=== PATIENT | female | born 1970 | race Caucasian/White ===

== ENCOUNTER 2017-04-05 11:54 | Inpatient (IN) | payer MEDICAID, OTHER ==
[~2017-04-05] VITALS: Ht 160 cm; Wt 61.0 kg
[2017-04-05 12:51] LABS: Basophils # (auto) 0 uL; Basophils % (auto) 0.3 % (0.0-2.0); Eosinophils # (auto) 0 uL; Eosinophils % (auto) 0.2 % (0.0-7.0); Hematocrit 36.6 % (41.0-53.0); Hemoglobin 12.2 g/dL (13.5-17.5); Lymphocytes # (auto) 0.6 uL; Lymphocytes % (auto) 5.1 % (10.0-50.0); Mean Corpuscular Hemoglobin 30.5 pg (28.0-32.0); Mean Corpuscular Hgb Conc. 33.3 g/dL (32.0-36.0); Mean Corpuscular Volume 91.8 fL (80.0-100.0); Monocytes # (auto) 0.8 uL; Monocytes % (auto) 7.2 % (0.0-12.0); Neutrophils # (auto) 9.6 uL; Neutrophils % (auto) 87.2 % (37.0-80.0); Platelet Count (auto) 400 10^3/uL (140-450); Red Blood Cells 3.99 10^6/uL (4.5-5.90); Red Cell Distribution Width 15.3 % (11.8-14.3)
[2017-04-05 13:07] LABS: Alanine Aminotransferase 26 U/L (16-61); Albumin 3.1 g/dL (3.4-5.0); Anion Gap 9 (5-15); Aspartate Aminotransferase 14 U/L (15-37); BUN/Creatinine Ratio 17.2; Blood Urea Nitrogen 11 mg/dL (7-18); Carbon Dioxide 28 mmol/L (21-32); Chloride 100 mmol/L (98-107); GFR African American 172 mL/min; GFR Non-African American 142 mL/min; Glucose 131 mg/dL (74-106); Sodium 137 mmol/L (136-145)
[2017-04-05 13:11] LABS: Alkaline Phosphatase 118 U/L (45-117); Bilirubin, Total 1.3 mg/dL (0.2-1.0)
[2017-04-05 13:13] LABS: Potassium 2.9 mmol/L (3.5-5.1)
[2017-04-05] MEDS ORDERED: SODIUM CHLORIDE 0.9% 1,000 ML IVB ONE (13:30)
[2017-04-05 14:02] LABS: Partial Thromboplastin Time 27.1 sec (22.64-33.71); Prothrombin Time 10.9 sec (9.37-12.3)
[2017-04-05 14:08] LABS: Amylase 23 U/L (25-115); Lipase 59 U/L (73-393)
[2017-04-05] MEDS ORDERED: ONDANSETRON HCL 4 MG/2 ML VIAL IV ONE ×2 (16:45→20:00)
[2017-04-05] MEDS ORDERED: KETOROLAC TROMETH 30 MG/ML 1ML VIAL IV ONE (16:45)
[2017-04-05] MEDS ORDERED: POTASSIUM CHL 20 Meq TABLET PO ONE ×2 (16:45)
[2017-04-05 18:22] LABS: Urine Bacteria NONE SEEN /hpf (None Seen); Urine Blood 1+ /uL (Negative); Urine Mucus FEW (None Seen); Urine Specific Gravity 1.023 (1.001-1.035); Urine WBC 10 /hpf (0 - 3)
[2017-04-05] MEDS ORDERED: MORPHINE SULFATE 4 MG/ML SYR/VIAL IV ONE (20:00)
[2017-04-05] MEDS ORDERED: cefTRIAXone 1GM/10ml IVPUSH 10 ML IV ONE (20:00)
[2017-04-05] MEDS: HYDROcodone-ACET 5/325MG TAB PO PRN (23:50)
[2017-04-06] VITALS (7 sets, daily range): BP systolic 105–153; BP diastolic 55–83
[2017-04-06] MEDS ORDERED: VANCOMYCIN PER PHARMACY 0 MG IV SCH
[2017-04-06] MEDS ORDERED: VANCOMYCIN 1GM/250ML 250 ML IV ONE (01:00)
[2017-04-06 01:49] LABS: Alcohol, Urine < 3.0 mg/dL (0-5); Amphetamine Screen, Urine NEGATIVE (NEGATIVE); Barbiturate Scree,Urine NEGATIVE (NEGATIVE); Benzodiazephine Screen, Urine NEGATIVE (NEGATIVE); Cannabinoid Screen, Urine NEGATIVE (NEGATIVE); Cocaine Screen, Urine NEGATIVE (NEGATIVE); Opiate Scree,Urine POSITIVE (NEGATIVE); Phencyclidine Screen, Urine NEGATIVE (NEGATIVE)
[2017-04-06] MEDS: MORPHINE SULFATE 4 MG/ML SYR/VIAL IV PRN ×4 (03:32→20:02)
[2017-04-06] MEDS: hydrOXYzine HCL 10 MG TAB PO PRN (04:11)
[2017-04-06] MEDS ORDERED: SERT25TA84 PO (04:51)
[2017-04-06] MEDS ORDERED: HYDR-3682 PO (04:51)
[2017-04-06] MEDS: cefTRIAXone 1GM/10ml IVPUSH 10 ML IV SCH (08:38)
[2017-04-06] MEDS: ONDANSETRON HCL 4 MG/2 ML VIAL IV PRN ×3 (08:47→20:02)
[2017-04-06 09:43] LABS: Basophils # (auto) 0 uL; Basophils % (auto) 0.2 % (0.0-2.0); Eosinophils # (auto) 0.1 uL; Eosinophils % (auto) 0.7 % (0.0-7.0); Hematocrit 29.4 % (36.0-46.0); Hemoglobin 9.8 g/dL (12.2-16.2); Lymphocytes # (auto) 0.8 uL; Lymphocytes % (auto) 7.8 % (10.0-50.0); Mean Corpuscular Hemoglobin 30.4 pg (28.0-32.0); Mean Corpuscular Hgb Conc. 33.4 g/dL (32.0-36.0); Mean Corpuscular Volume 90.9 fL (80.0-100.0); Monocytes % (auto) 10.5 % (0.0-12.0); Neutrophils # (auto) 7.9 uL; Neutrophils % (auto) 80.8 % (37.0-80.0); Platelet Count (auto) 304 10^3/uL (140-450); Red Blood Cells 3.23 10^6/uL (4.0-5.20); Red Cell Distribution Width 14.9 % (11.8-14.3); White Blood Cell 9.7 10^3/uL (4.4-10.8)
[2017-04-06 10:02] LABS: Potassium 3.6 mmol/L (3.5-5.1)
[2017-04-06] MEDS: SERTRALINE HCL 50 MG TAB PO SCH (10:13)
[2017-04-06] MEDS: HYDROcodone-ACET 5/325MG TAB PO PRN (10:19)
[2017-04-06] MEDS: metroNIDAZOLE 500MG/100ML 100 ML IV SCH ×2 (14:35→22:24)
[2017-04-06] MEDS: ACETAMINOPHEN 500 MG TAB PO PRN (21:36)
[2017-04-07 05:11] VITALS: BP 116/69
[2017-04-07] MEDS: metroNIDAZOLE 500MG/100ML 100 ML IV SCH ×3 (05:39→22:02)
[2017-04-07] MEDS: ONDANSETRON HCL 4 MG/2 ML VIAL IV PRN ×4 (05:40→22:00)
[2017-04-07] MEDS: MORPHINE SULFATE 4 MG/ML SYR/VIAL IV PRN ×3 (05:40→15:43)
[2017-04-07 06:44] LABS: Basophils # (auto) 0.1 uL; Basophils % (auto) 0.5 % (0.0-2.0); Eosinophils # (auto) 0 uL; Eosinophils % (auto) 0.1 % (0.0-7.0); Hematocrit 32.8 % (36.0-46.0); Lymphocytes # (auto) 0.8 uL; Mean Corpuscular Hemoglobin 30.1 pg (28.0-32.0); Mean Corpuscular Hgb Conc. 33.5 g/dL (32.0-36.0); Mean Corpuscular Volume 89.8 fL (80.0-100.0); Monocytes # (auto) 0.9 uL; Neutrophils # (auto) 8.2 uL; Neutrophils % (auto) 82.4 % (37.0-80.0); Platelet Count (auto) 335 10^3/uL (140-450); Red Blood Cells 3.65 10^6/uL (4.0-5.20); Red Cell Distribution Width 15.1 % (11.8-14.3)
[2017-04-07 07:05] LABS: Albumin 2.4 g/dL (3.4-5.0); Calcium 8.4 mg/dL (8.5-10.1); Potassium 3.5 mmol/L (3.5-5.1)
[2017-04-07 07:07] LABS: Bilirubin, Total 0.4 mg/dL (0.2-1.0); Total Protein 6.5 g/dL (6.4-8.2)
[2017-04-07 09:00] VITALS: BP 106/63
[2017-04-07] MEDS: cefTRIAXone 1GM/10ml IVPUSH 10 ML IV SCH (10:06)
[2017-04-07] MEDS: SERTRALINE HCL 50 MG TAB PO SCH (10:07)
[2017-04-07 13:00] VITALS: BP 110/65
[2017-04-07 17:00] VITALS: BP 109/61
[2017-04-07 22:00] VITALS: BP 100/70
[2017-04-07] MEDS: HYDROcodone-ACET 5/325MG TAB PO PRN (22:01)
[2017-04-08 05:30] VITALS: BP 107/62
[2017-04-08] MEDS: HYDROcodone-ACET 5/325MG TAB PO PRN ×2 (05:58→17:56)
[2017-04-08] MEDS: metroNIDAZOLE 500MG/100ML 100 ML IV SCH ×3 (05:58→21:50)
[2017-04-08] MEDS: ONDANSETRON HCL 4 MG/2 ML VIAL IV PRN ×3 (06:07→21:51)
[2017-04-08 07:15] LABS: Basophils # (auto) 0 uL; Basophils % (auto) 0.2 % (0.0-2.0); Eosinophils # (auto) 0 uL; Eosinophils % (auto) 0.3 % (0.0-7.0); Hematocrit 30.5 % (36.0-46.0); Hemoglobin 10.3 g/dL (12.2-16.2); Lymphocytes # (auto) 0.6 uL; Lymphocytes % (auto) 6.1 % (10.0-50.0); Mean Corpuscular Hemoglobin 30.5 pg (28.0-32.0); Mean Corpuscular Hgb Conc. 33.8 g/dL (32.0-36.0); Mean Corpuscular Volume 90.1 fL (80.0-100.0); Monocytes # (auto) 0.8 uL; Monocytes % (auto) 7.6 % (0.0-12.0); Neutrophils # (auto) 8.9 uL; Neutrophils % (auto) 85.8 % (37.0-80.0); Platelet Count (auto) 355 10^3/uL (140-450); Red Blood Cells 3.38 10^6/uL (4.0-5.20); Red Cell Distribution Width 14.8 % (11.8-14.3); White Blood Cell 10.4 10^3/uL (4.4-10.8)
[2017-04-08 07:31] LABS: BUN/Creatinine Ratio 14.3; Calcium 8.1 mg/dL (8.5-10.1); Potassium 3.2 mmol/L (3.5-5.1)
[2017-04-08 08:27] VITALS: BP 93/50
[2017-04-08] MEDS ORDERED: POTASSIUM CHLORIDE 40 MEQ, LIDOCAINE 1% (LOCAL ANESTH.) 4 ML in SODIUM CHL 0.9% 100 ML IV ONE (09:45)
[2017-04-08] MEDS: cefTRIAXone 1GM/10ml IVPUSH 10 ML IV SCH (09:50)
[2017-04-08] MEDS: MORPHINE SULFATE 4 MG/ML SYR/VIAL IV PRN ×3 (09:51→20:20)
[2017-04-08] MEDS: SERTRALINE HCL 50 MG TAB PO SCH (09:51)
[2017-04-08 13:00] VITALS: BP 97/53
[2017-04-08 17:00] VITALS: BP 111/68
[2017-04-08] MEDS: ACETAMINOPHEN 500 MG TAB PO PRN (20:51)
[2017-04-08 21:06] LABS: INR 1.3 (0.9-1.15); Partial Thromboplastin Time 29.1 sec (22.64-33.71); Prothrombin Time 14.2 sec (9.37-12.3)
[2017-04-08 22:00] VITALS: BP 96/54
[2017-04-09 05:43] VITALS: BP 100/51
[2017-04-09 05:56] LABS: Basophils # (auto) 0 uL; Basophils % (auto) 0.2 % (0.0-2.0); Eosinophils # (auto) 0.1 uL; Eosinophils % (auto) 0.5 % (0.0-7.0); Hematocrit 29.1 % (36.0-46.0); Hemoglobin 9.9 g/dL (12.2-16.2); Lymphocytes # (auto) 0.9 uL; Lymphocytes % (auto) 8.5 % (10.0-50.0); Mean Corpuscular Hemoglobin 30.8 pg (28.0-32.0); Mean Corpuscular Hgb Conc. 34.1 g/dL (32.0-36.0); Mean Corpuscular Volume 90.2 fL (80.0-100.0); Monocytes # (auto) 0.8 uL; Monocytes % (auto) 7.6 % (0.0-12.0); Neutrophils # (auto) 9.2 uL; Neutrophils % (auto) 83.2 % (37.0-80.0); Platelet Count (auto) 350 10^3/uL (140-450); Red Blood Cells 3.22 10^6/uL (4.0-5.20); Red Cell Distribution Width 14.9 % (11.8-14.3)
[2017-04-09] MEDS: HYDROcodone-ACET 5/325MG TAB PO PRN (06:00)
[2017-04-09] MEDS: metroNIDAZOLE 500MG/100ML 100 ML IV SCH ×3 (06:00→21:20)
[2017-04-09 06:19] LABS: Calcium 7.8 mg/dL (8.5-10.1); Potassium 3.6 mmol/L (3.5-5.1)
[2017-04-09 08:00] VITALS: BP 90/51
[2017-04-09 09:00] VITALS: BP 92/51
[2017-04-09] MEDS: cefTRIAXone 1GM/10ml IVPUSH 10 ML IV SCH (10:00)
[2017-04-09] MEDS: MORPHINE SULFATE 4 MG/ML SYR/VIAL IV PRN ×3 (10:47→20:28)
[2017-04-09] MEDS ORDERED: BUPIVACAINE W/ EPINEPH 0.25% INJ 50ML MDV ONE (10:48)
[2017-04-09] MEDS: SERTRALINE HCL 50 MG TAB PO SCH (10:50)
[2017-04-09] MEDS: ONDANSETRON HCL 4 MG/2 ML VIAL IV PRN ×3 (10:55→20:27)
[2017-04-09] MEDS ORDERED: LIDOCAINE 1% HCL (LOCAL ANESTH.) INJ 20ML MDV ONE (11:29)
[2017-04-09] MEDS ORDERED: SUCCINYLCHOLINE CHLORIDE 20 MG/ML 10ML VIAL IV ONE (11:30)
[2017-04-09] MEDS ORDERED: MIDAZOLAM HCL 1MG/1ML-2 ML VIAL ONE (11:32)
[2017-04-09] MEDS ORDERED: PROPOFOL 10 MG/ML 20 ML IV ONE (11:32)
[2017-04-09] MEDS ORDERED: ROCURONIUM 10MG/ML 10ML VIAL IV ONE (11:32)
[2017-04-09] MEDS ORDERED: MORPHINE SULFATE 4 MG/ML SYR/VIAL IV PRN (12:00)
[2017-04-09] MEDS ORDERED: ONDANSETRON HCL 4 MG/2 ML VIAL IV ONE (12:00)
[2017-04-09] MEDS ORDERED: NALOXONE HCL 0.4 MG/ML VIAL IV PRN (12:00)
[2017-04-09] MEDS ORDERED: hydrALAZINE HCL 20 MG/ML VL IV PRN (12:00)
[2017-04-09] MEDS ORDERED: fentaNYL CITRATE 100 MCG/2 ML VL ONE (12:09)
[2017-04-09] MEDS ORDERED: GLYCOPYRROLATE 0.2 MG/ML 1ML VIAL ONE ×2 (13:30→13:32)
[2017-04-09] MEDS ORDERED: NEOSTIGMINE 1 MG/ML INJ (10mg/10ML VIAL) ONE (13:30)
[2017-04-09] MEDS ORDERED: KETOROLAC TROMETH 30 MG/ML 1ML VIAL ONE (13:44)
[2017-04-09] MEDS ORDERED: ACETAMINOPHEN 500 MG TAB PO PRN (14:00)
[2017-04-09] MEDS ORDERED: MORPHINE SULF INJ 2 MG/ML SYRINGE 1ML IV PRN (14:00)
[2017-04-09] MEDS ORDERED: MEPERIDINE HCL (50 MG/ML) 1 ML VIAL ONE (14:05)
[2017-04-09] MEDS: SODIUM CHLORIDE 0.9% 1,000 ML IV SCH (16:02)
[2017-04-09 17:00] VITALS: BP 94/48
[2017-04-09 21:25] VITALS: BP 99/63
[2017-04-10] MEDS: SODIUM CHLORIDE 0.9% 1,000 ML IV SCH ×4 (00:01→20:25)
[2017-04-10 00:55] VITALS: BP 101/60
[2017-04-10] MEDS: ONDANSETRON HCL 4 MG/2 ML VIAL IV PRN ×3 (01:00→13:19)
[2017-04-10] MEDS: MORPHINE SULFATE 4 MG/ML SYR/VIAL IV PRN ×2 (01:01→05:02)
[2017-04-10 05:15] VITALS: BP 98/50
[2017-04-10 07:05] LABS: Basophils # (auto) 0 uL; Basophils % (auto) 0.2 % (0.0-2.0); Eosinophils # (auto) 0 uL; Eosinophils % (auto) 0.2 % (0.0-7.0); Hematocrit 31.1 % (36.0-46.0); Hemoglobin 10.3 g/dL (12.2-16.2); Lymphocytes # (auto) 0.6 uL; Lymphocytes % (auto) 4.6 % (10.0-50.0); Mean Corpuscular Hemoglobin 29.9 pg (28.0-32.0); Mean Corpuscular Hgb Conc. 33.2 g/dL (32.0-36.0); Mean Corpuscular Volume 90.2 fL (80.0-100.0); Monocytes # (auto) 0.3 uL; Monocytes % (auto) 2.7 % (0.0-12.0); Neutrophils # (auto) 11.5 uL; Neutrophils % (auto) 92.3 % (37.0-80.0); Platelet Count (auto) 399 10^3/uL (140-450); Red Blood Cells 3.45 10^6/uL (4.0-5.20); Red Cell Distribution Width 15.6 % (11.8-14.3); White Blood Cell 12.5 10^3/uL (4.4-10.8)
[2017-04-10 07:07] LABS: Calcium 7.8 mg/dL (8.5-10.1); Potassium 3.7 mmol/L (3.5-5.1)
[2017-04-10 08:00] VITALS: BP 121/62
[2017-04-10] MEDS ORDERED: KETOROLAC TROMETH 60MG/2ML VIAL IM ONE (08:15)
[2017-04-10 09:00] VITALS: BP 121/62
[2017-04-10] MEDS: cefTRIAXone 1GM/10ml IVPUSH 10 ML IV SCH (10:07)
[2017-04-10] MEDS: SERTRALINE HCL 50 MG TAB PO SCH (10:08)
[2017-04-10] MEDS: metroNIDAZOLE 500MG/100ML 100 ML IV SCH ×3 (11:26→21:29)
[2017-04-10 13:00] VITALS: BP 99/62
[2017-04-10] MEDS: HYDROcodone-ACET 5/325MG TAB PO PRN ×2 (13:18→18:45)
[2017-04-10 16:59] VITALS: BP 104/66
[2017-04-11] MEDS: HYDROcodone-ACET 5/325MG TAB PO PRN ×4 (00:38→20:29)
[2017-04-11] MEDS: SODIUM CHLORIDE 0.9% 1,000 ML IV SCH ×3 (05:09→22:02)
[2017-04-11] MEDS: metroNIDAZOLE 500MG/100ML 100 ML IV SCH ×3 (05:27→21:16)
[2017-04-11 05:34] VITALS: BP 107/69
[2017-04-11 05:42] LABS: Basophils # (auto) 0 uL; Basophils % (auto) 0.2 % (0.0-2.0); Eosinophils # (auto) 0.1 uL; Eosinophils % (auto) 0.9 % (0.0-7.0); Hematocrit 26.1 % (36.0-46.0); Hemoglobin 8.8 g/dL (12.2-16.2); Lymphocytes # (auto) 0.7 uL; Lymphocytes % (auto) 5.7 % (10.0-50.0); Mean Corpuscular Hemoglobin 30.2 pg (28.0-32.0); Mean Corpuscular Hgb Conc. 33.5 g/dL (32.0-36.0); Mean Corpuscular Volume 90.2 fL (80.0-100.0); Monocytes # (auto) 0.4 uL; Monocytes % (auto) 3.2 % (0.0-12.0); Neutrophils # (auto) 10.8 uL; Platelet Count (auto) 347 10^3/uL (140-450); Red Cell Distribution Width 15.4 % (11.8-14.3)
[2017-04-11 05:53] LABS: Potassium 3.2 mmol/L (3.5-5.1)
[2017-04-11 05:58] LABS: Albumin 1.8 g/dL (3.4-5.0); BUN/Creatinine Ratio 16.3; Calcium 7.4 mg/dL (8.5-10.1)
[2017-04-11 06:06] LABS: Bilirubin, Total 0.2 mg/dL (0.2-1.0); Total Protein 5.3 g/dL (6.4-8.2)
[2017-04-11] MEDS ORDERED: SODIUM CHLORIDE 0.9% 500 ML IV ONE (06:15)
[2017-04-11 08:59] VITALS: BP 123/73
[2017-04-11] MEDS: cefTRIAXone 1GM/10ml IVPUSH 10 ML IV SCH (09:44)
[2017-04-11] MEDS: SERTRALINE HCL 50 MG TAB PO SCH (09:44)
[2017-04-11] MEDS: hydrOXYzine HCL 10 MG TAB PO PRN (09:45)
[2017-04-11 12:47] VITALS: BP 118/75
[2017-04-11] MEDS ORDERED: POTASSIUM CHLORIDE 40 MEQ, LIDOCAINE 1% (LOCAL ANESTH.) 4 ML in SODIUM CHL 0.9% 100 ML IV ONE (14:30)
[2017-04-11 17:00] VITALS: BP 156/90
[2017-04-11] MEDS: MORPHINE SULFATE 4 MG/ML SYR/VIAL IV PRN ×2 (17:21→21:16)
[2017-04-11] MEDS: ONDANSETRON HCL 4 MG/2 ML VIAL IV PRN ×2 (17:21→21:15)
[2017-04-11] MEDS ORDERED: BOOST PLUS 8 ounce PO SCH (18:00)
[2017-04-11 20:00] VITALS: BP 144/86
[2017-04-11 22:00] VITALS: BP 144/86
[2017-04-11] MEDS: PRO-STAT 64 30ML PO SCH (22:02)
[2017-04-11] MEDS: BOOST PLUS 8 ounce PO SCH (22:02)
[2017-04-12] MEDS: ONDANSETRON HCL 4 MG/2 ML VIAL IV PRN ×6 (01:14→21:04)
[2017-04-12] MEDS: MORPHINE SULFATE 4 MG/ML SYR/VIAL IV PRN ×6 (01:14→21:05)
[2017-04-12 05:45] VITALS: BP 148/89
[2017-04-12] MEDS: SODIUM CHLORIDE 0.9% 1,000 ML IV SCH ×3 (05:59→21:40)
[2017-04-12] MEDS: metroNIDAZOLE 500MG/100ML 100 ML IV SCH ×3 (05:59→21:38)
[2017-04-12 07:05] LABS: Basophils % (auto) 0.3 % (0.0-2.0); Eosinophils # (auto) 0.1 uL; Lymphocytes # (auto) 0.7 uL; Monocytes # (auto) 0.7 uL
[2017-04-12 07:07] LABS: Basophils # (auto) 0 uL; Eosinophils % (auto) 0.7 % (0.0-7.0); Hematocrit 30.1 % (36.0-46.0); Lymphocytes % (auto) 4.4 % (10.0-50.0); Mean Corpuscular Hemoglobin 29.8 pg (28.0-32.0); Mean Corpuscular Hgb Conc. 33.3 g/dL (32.0-36.0); Mean Corpuscular Volume 89.4 fL (80.0-100.0); Monocytes % (auto) 4.1 % (0.0-12.0); Neutrophils # (auto) 15.4 uL; Neutrophils % (auto) 90.5 % (37.0-80.0); Platelet Count (auto) 490 10^3/uL (140-450); Red Blood Cells 3.36 10^6/uL (4.0-5.20); Red Cell Distribution Width 15.8 % (11.8-14.3); White Blood Cell 17.1 10^3/uL (4.4-10.8)
[2017-04-12 07:22] LABS: Albumin 1.9 g/dL (3.4-5.0); Potassium 3.2 mmol/L (3.5-5.1)
[2017-04-12 07:26] LABS: BUN/Creatinine Ratio 14.3; Calcium 7.5 mg/dL (8.5-10.1)
[2017-04-12 07:29] LABS: Bilirubin, Total 0.3 mg/dL (0.2-1.0); Total Protein 5.8 g/dL (6.4-8.2)
[2017-04-12 08:33] VITALS: BP 144/91
[2017-04-12] MEDS: cefTRIAXone 1GM/10ml IVPUSH 10 ML IV SCH (09:21)
[2017-04-12] MEDS: SERTRALINE HCL 50 MG TAB PO SCH (09:21)
[2017-04-12] MEDS: PRO-STAT 64 30ML PO SCH ×2 (10:00→21:40)
[2017-04-12] MEDS: BOOST PLUS 8 ounce PO SCH ×2 (10:10→21:40)
[2017-04-12] MEDS ORDERED: POTASSIUM CHLORIDE 40 MEQ, LIDOCAINE 1% (LOCAL ANESTH.) 4 ML in SODIUM CHL 0.9% 100 ML IV ONE (10:15)
[2017-04-12] MEDS: DOXYCYCLINE 100 MG TAB/CAP PO SCH ×2 (10:29→21:38)
[2017-04-12] MEDS: HYDROcodone-ACET 5/325MG TAB PO PRN ×2 (10:33→23:04)
[2017-04-12 13:07] VITALS: BP 130/77
[2017-04-12 17:00] VITALS: BP 164/90
[2017-04-12 20:00] VITALS: BP 141/83
[2017-04-12 21:30] VITALS: BP 141/83
[2017-04-13] VITALS (7 sets, daily range): BP systolic 138–175; BP diastolic 79–104
[2017-04-13] MEDS: metroNIDAZOLE 500MG/100ML 100 ML IV SCH ×3 (06:10→22:19)
[2017-04-13] MEDS: SODIUM CHLORIDE 0.9% 1,000 ML IV SCH ×3 (06:10→21:52)
[2017-04-13 07:19] LABS: Basophils # (auto) 0 uL; Basophils % (auto) 0.3 % (0.0-2.0); Eosinophils # (auto) 0.1 uL; Hemoglobin 10.4 g/dL (12.2-16.2); Mean Corpuscular Hemoglobin 30.1 pg (28.0-32.0); Mean Corpuscular Hgb Conc. 33.7 g/dL (32.0-36.0); Mean Corpuscular Volume 89.2 fL (80.0-100.0); Monocytes # (auto) 0.7 uL; Monocytes % (auto) 5.6 % (0.0-12.0); Neutrophils # (auto) 10.6 uL; Neutrophils % (auto) 85.1 % (37.0-80.0); Nucleated Red Blood Cells % 0.1 %; Platelet Count (auto) 549 10^3/uL (140-450); Red Blood Cells 3.47 10^6/uL (4.0-5.20); Red Cell Distribution Width 15.6 % (11.8-14.3); White Blood Cell 12.5 10^3/uL (4.4-10.8)
[2017-04-13 07:24] LABS: Albumin 1.8 g/dL (3.4-5.0); Calcium 7.7 mg/dL (8.5-10.1); Potassium 3.5 mmol/L (3.5-5.1)
[2017-04-13 07:28] LABS: BUN/Creatinine Ratio 13.9
[2017-04-13 07:35] LABS: Bilirubin, Total 0.3 mg/dL (0.2-1.0); Total Protein 5.6 g/dL (6.4-8.2)
[2017-04-13] MEDS: ONDANSETRON HCL 4 MG/2 ML VIAL IV PRN ×3 (07:46→16:46)
[2017-04-13] MEDS: MORPHINE SULFATE 4 MG/ML SYR/VIAL IV PRN ×3 (07:47→16:46)
[2017-04-13] MEDS: DOXYCYCLINE 100 MG TAB/CAP PO SCH ×2 (10:16→22:18)
[2017-04-13] MEDS: SERTRALINE HCL 50 MG TAB PO SCH (10:17)
[2017-04-13] MEDS: cefTRIAXone 1GM/10ml IVPUSH 10 ML IV SCH (10:17)
[2017-04-13] MEDS: PRO-STAT 64 30ML PO SCH ×2 (10:18→22:00)
[2017-04-13] MEDS: BOOST PLUS 8 ounce PO SCH ×2 (10:18→22:00)
[2017-04-13] MEDS ORDERED: FUROSEMIDE 20 MG/2 ML VIAL IV ONE ×2 (12:15)
[2017-04-13] MEDS: DOCUSATE SOD 100 MG CAP PO PRN (13:50)
[2017-04-13] MEDS: HYDROcodone-ACET 5/325MG TAB PO PRN ×2 (18:10→22:49)
[2017-04-14 05:00] VITALS: BP 174/86
[2017-04-14] MEDS: HYDROcodone-ACET 5/325MG TAB PO PRN ×2 (05:13→22:02)
[2017-04-14] MEDS: metroNIDAZOLE 500MG/100ML 100 ML IV SCH ×2 (05:13→14:00)
[2017-04-14] MEDS: SODIUM CHLORIDE 0.9% 1,000 ML IV SCH ×2 (05:21→09:00)
[2017-04-14 05:30] LABS: Basophils # (auto) 0 uL; Basophils % (auto) 0.4 % (0.0-2.0); Eosinophils # (auto) 0.2 uL; Hematocrit 30.6 % (36.0-46.0); Hemoglobin 10.5 g/dL (12.2-16.2); Lymphocytes # (auto) 1.2 uL; Mean Corpuscular Hemoglobin 30.2 pg (28.0-32.0); Red Cell Distribution Width 16.1 % (11.8-14.3)
[2017-04-14 05:34] LABS: Eosinophils % (auto) 2.5 % (0.0-7.0); Mean Corpuscular Hgb Conc. 34.4 g/dL (32.0-36.0); Mean Corpuscular Volume 87.8 fL (80.0-100.0); Monocytes # (auto) 0.9 uL; Monocytes % (auto) 10.9 % (0.0-12.0); Neutrophils # (auto) 6.2 uL; Neutrophils % (auto) 72.2 % (37.0-80.0); Nucleated Red Blood Cells % 0.3 %; Platelet Count (auto) 635 10^3/uL (140-450); Red Blood Cells 3.48 10^6/uL (4.0-5.20); White Blood Cell 8.6 10^3/uL (4.4-10.8)
[2017-04-14] MEDS: ONDANSETRON HCL 4 MG/2 ML VIAL IV PRN (05:43)
[2017-04-14 05:53] LABS: Alanine Aminotransferase < 6 U/L (13-56); Albumin 1.8 g/dL (3.4-5.0); Alkaline Phosphatase 84 U/L (45-117); Anion Gap 8 (5-15); Aspartate Aminotransferase 11 U/L (15-37); Bilirubin, Total 0.3 mg/dL (0.2-1.0); Blood Urea Nitrogen 3 mg/dL (7-18); Calcium 7.8 mg/dL (8.5-10.1); Carbon Dioxide 30 mmol/L (21-32); Chloride 101 mmol/L (98-107); GFR African American 202 mL/min; GFR Non-African American 167 mL/min; Glucose 92 mg/dL (74-106); Potassium 3.3 mmol/L (3.5-5.1); Sodium 139 mmol/L (136-145); Total Protein 5.9 g/dL (6.4-8.2)
[2017-04-14 06:52] VITALS: BP 140/83
[2017-04-14 08:22] VITALS: BP 129/84
[2017-04-14] MEDS: cefTRIAXone 1GM/10ml IVPUSH 10 ML IV SCH (08:44)
[2017-04-14] MEDS: DOCUSATE SOD 100 MG CAP PO PRN (09:00)
[2017-04-14] MEDS ORDERED: POTASSIUM CHLORIDE 40 MEQ, LIDOCAINE 1% (LOCAL ANESTH.) 4 ML in SODIUM CHL 0.9% 100 ML IV ONE (10:15)
[2017-04-14] MEDS: DOXYCYCLINE 100 MG TAB/CAP PO SCH ×2 (10:23→21:59)
[2017-04-14] MEDS: PRO-STAT 64 30ML PO SCH ×2 (10:23→19:37)
[2017-04-14] MEDS: BOOST PLUS 8 ounce PO SCH ×2 (10:23→19:37)
[2017-04-14] MEDS: SERTRALINE HCL 50 MG TAB PO SCH (10:23)
[2017-04-14 12:42] VITALS: BP 132/91
[2017-04-14 16:20] VITALS: BP 127/74
[2017-04-14] MEDS: POTASSIUM CHL 10% (20 MEQ/15ML) 15ml ORAL SOLN PO ONE ×2 (16:37→16:41)
[2017-04-14] MEDS ORDERED: POTASSIUM CHL 20 Meq TABLET PO ONE (16:45)
[2017-04-14] MEDS: metroNIDAZOLE 500 MG TAB PO SCH (21:59)
[2017-04-14 22:00] VITALS: BP 136/86
[2017-04-15] MEDS: HYDROcodone-ACET 5/325MG TAB PO PRN ×3 (02:34→10:25)
[2017-04-15 05:41] LABS: Hematocrit 28.8 % (36.0-46.0); Hemoglobin 9.9 g/dL (12.2-16.2); White Blood Cell 9.8 10^3/uL (4.4-10.8)
[2017-04-15 05:47] LABS: Basophils # (auto) 0.1 uL; Basophils % (auto) 1.2 % (0.0-2.0); Eosinophils # (auto) 0.1 uL; Eosinophils % (auto) 1.4 % (0.0-7.0); Lymphocytes # (auto) 1.8 uL; Lymphocytes % (auto) 17.9 % (10.0-50.0); Mean Corpuscular Hemoglobin 30.1 pg (28.0-32.0); Mean Corpuscular Hgb Conc. 34.2 g/dL (32.0-36.0); Monocytes # (auto) 0.8 uL; Monocytes % (auto) 8.6 % (0.0-12.0); Neutrophils % (auto) 70.9 % (37.0-80.0); Nucleated Red Blood Cells % 0.1 %; Platelet Count (auto) 725 10^3/uL (140-450); Red Blood Cells 3.28 10^6/uL (4.0-5.20)
[2017-04-15] MEDS: metroNIDAZOLE 500 MG TAB PO SCH (05:58)
[2017-04-15 06:00] VITALS: BP 144/84
[2017-04-15 06:01] LABS: Calcium 7.8 mg/dL (8.5-10.1); Potassium 3.8 mmol/L (3.5-5.1)
[2017-04-15 06:02] LABS: BUN/Creatinine Ratio 7.9
[2017-04-15 08:00] VITALS: BP 155/93
[2017-04-15] MEDS: cefTRIAXone 1GM/10ml IVPUSH 10 ML IV SCH (08:52)
[2017-04-15 09:00] VITALS: BP 155/93
[2017-04-15] MEDS: BOOST PLUS 8 ounce PO SCH (10:00)
[2017-04-15] MEDS: PRO-STAT 64 30ML PO SCH (10:00)
[2017-04-15 10:04] VITALS: BP 155/93
[2017-04-15] MEDS: DOXYCYCLINE 100 MG TAB/CAP PO SCH (10:24)
[2017-04-15] MEDS: SERTRALINE HCL 50 MG TAB PO SCH (10:27)
== END 2017-04-15 14:09 | disposition home or self-care (01) | DRG 513 ==
LOC: EDSEX 11:54 → ER 11:54 → OVERFLOW 11:55 → WEST WING 04-06 04:19
PROVIDERS: ADMIT Nurse Practitioner Family; ATTEND Internal Medicine
PROC: 0UT14ZZ Resection of Left Ovary, Percutaneous Endoscopic Approach (ICD-10-PCS; 2017-04-09)
PROC: 0UT74ZZ Resection of Bilateral Fallopian Tubes, Percutaneous Endoscopic Approach (ICD-10-PCS; 2017-04-09)
PROC: 8E0W4CZ Robotic Assisted Procedure of Trunk Region, Percutaneous Endoscopic Approach (ICD-10-PCS; 2017-04-09)
PROC: 0DNU4ZZ Release Omentum, Percutaneous Endoscopic Approach (ICD-10-PCS; principal; 2017-04-09 11:37)
DX: N70.93 Salpingitis and oophoritis, unspecified (principal); E43 Unspecified severe protein-calorie malnutrition; I10 Essential (primary) hypertension; K80.20 Calculus of gallbladder without cholecystitis without obstruction; D64.9 Anemia, unspecified; E87.6 Hypokalemia; F17.210 Nicotine dependence, cigarettes, uncomplicated; F41.9 Anxiety disorder, unspecified; G89.29 Other chronic pain; F32.9 Major depressive disorder, single episode, unspecified; R19.00 Intra-abdominal and pelvic swelling, mass and lump, unspecified site; K66.0 Peritoneal adhesions (postprocedural) (postinfection); I25.10 Atherosclerotic heart disease of native coronary artery without angina pectoris; N83.202 Unspecified ovarian cyst, left side; N83.201 Unspecified ovarian cyst, right side; N73.9 Female pelvic inflammatory disease, unspecified; K59.00 Constipation, unspecified; N39.0 Urinary tract infection, site not specified; Z82.49 Family history of ischemic heart disease and other diseases of the circulatory system; Z90.710 Acquired absence of both cervix and uterus; Z68.23 Body mass index [BMI] 23.0-23.9, adult; Z88.0 Allergy status to penicillin; Z91.010 Allergy to peanuts
CPT/HCPCS: 36415; 71045; 74176; 76830; 76856; 80048; 80053; 80307; 81001; 82150; 82378; 83690; 83735; 84484; 84702; 85025; 85610; 85730; 86304; 86703; 86850; 86900; 86901; 87040; 87070; 87075; 87077; 87086; 87186; 87205; 93005; 94761; 96361; 96365; 96375; 96376; J0330; J1885; J2001; J2250; J2405; J2704; J3490